=== PATIENT | female | born 1935 | race Caucasian/White ===

== ENCOUNTER 2017-01-02 12:29 | Emergency (ER) | payer MEDICARE, OTHER ==
--- NOTE | 2017-01-02 15:04 | XRAY Preliminary Report ---
Exam: XR Chest 2 View PA/LAT IMPRESSION: 1. There is some mild, nonspecific reticular opacity within the left lung base. This could represent atelectasis. 2. No evidence of lobar consolidation or pneumothorax. 3. No clearly acute bony abnormalities are seen. 4. Mild cardiomegaly. 5. There is a moderate size hiatal hernia. [facility] SITE ID: [id number]
--- NOTE | 2017-01-02 15:06 | XRAY Preliminary Report ---
Exam: XR Knee 3 View LT IMPRESSION: 1. No direct evidence of acute fracture or dislocation. 2. There is a suprapatellar joint effusion. 3. 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 [facility] SITE ID: [id number]
--- NOTE | 2017-01-02 15:07 | XRAY Report ---
EXAM: CHEST RADIOGRAPHY EXAM DATE: 01/02/2017 02:38 PM. CLINICAL HISTORY: Fall/left posterior tenderness. COMPARISON: None. TECHNIQUE: 2 views. FINDINGS: Lungs/Pleura: No evidence of acute consolidation or large effusion. There is mild, nonspecific reticu lar opacity within left lung base. No pneumothorax. Mediastinum: Mild cardiomegaly. There is thoracic aortic calcification. Other: There is a moderate-sized hiatal hernia. No clearly acute bony abnormalities are seen. IMPRESSION: 1. There is some mild, nonspecific reticular opacity within the left lung base. This could represent atelectasis. 2. No evidence of lobar consolidation or pneumothorax. 3. No clearly acute bony abnormalities are seen. 4. Mild cardiomegaly. 5. There is a moderate size hiatal hernia. [facility] Referring Provider Line: [phone] SITE ID: [id number]
--- NOTE | 2017-01-02 15:08 | XRAY Report ---
EXAM: LEFT KNEE RADIOGRAPHY EXAM DATE: 01/02/2017 02:38 PM. CLINICAL HISTORY: Patellar contusion. COMPARISON: None. TECHNIQUE: 3 views. FINDINGS: Bones: No evidence of fracture. Sclerosis projecting over the distal femur diaphysis may represent en chondroma or bone infarct. Joints: No evidence of dislocation. There is chondrocalcinosis. There is mild marginal osteophyte fo rmation. Soft Tissues: There is a suprapatellar joint effusion. There is mild prepatellar soft tissue swelling . IMPRESSION: 1. No direct evidence of acute fracture or dislocation. 2. There is a suprapatellar joint effusion. 3. 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 [facility] Referring Provider Line: [phone] SITE ID: [id number]
--- NOTE | 2017-01-02 16:40 | ED Physician Documentation ---
History of Present Illness - Stated complaint Stated Complaint: FALL BACK,RIB,LT KNEE PX - Chief complaint Chief Complaint: Back Pain - History obtained from History obtained from: Patient - Additonal information Additional information: Pleasant 81-year-old female who had a ground-level fall earlier today. She fell on the ground injuring her left knee and her left posterior thorax. She denies any presyncope or syncope. She feels perfectly fine other than pain to these areas. There is no preceding symptoms and she was well preceding the fall. She is ambulatory without difficulty and breathing comfortably. Review of systems: For pertinent positive and negatives in the review of systems please see the history of present illness, otherwise all other systems have been reviewed and are negative. Dragon disclaimer: Parts of this medical record were created using voice recognition technology. Because of the inherent limitations of this system, occasional same sounding word substitutions do occur and persist despite proofreading. Please read the document for context. 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 HEENT: Tonsil/Adenoidectomy - Present Medications Home Medications: Ambulatory Orders Medication Instructions Recorded Confirmed Levothyroxine [Synthroid] 01/02/17 Metoprolol Succinate [Toprol Xl] 01/02/17 Omeprazole 01/02/17 Simvastatin 01/02/17 - Allergies Allergies/Adverse Reactions: Allergies Allergy/AdvReac Type Severity Reaction Status Date / Time amoxicillin trihydrate * Allergy Rash Verified 01/02/17 12:38 [From Augmentin] aspirin [From Aggrenox] Allergy Headache Verified 01/02/17 12:38 dipyridamole [From Aggrenox] Allergy Headache Verified 01/02/17 12:38 hydrochlorothiazide Allergy Unknown Verified 01/02/17 12:38 potassium clavulanate * Allergy Rash Verified 01/02/17 12:38 [From Augmentin] Sulfa (Sulfonamide Allergy Unknown Verified 01/02/17 12:38 Antibiotics) - Social History Does the pt smoke?: No Smoking Status: Never smoker Does the pt drink ETOH?: Yes Does the pt have substance abuse?: No - Immunizations Immunizations are current?: Yes PD ED PE NORMAL - Vitals Vital signs reviewed: Yes - General General: Alert and oriented X 3, No acute distress, Well developed/nourished - HEENT HEENT: Atraumatic, PERRL, Pharynx benign, Dentition benign - Neck Neck: Supple, no meningeal sign - Cardiac Cardiac: RRR, No murmur - Respiratory Respiratory: No respiratory distress, Clear bilaterally, Other - Abdomen Abdomen: Normal bowel sounds, Non tender, Non distended - Back Back: No CVA TTP, No spinal TTP - Derm Derm: Normal color, No rash - Extremities Extremities: No deformity, No tenderness to palpate (Small contusion and discoloration is noted over the patella. Is very mild. There is no ligamentous laxity on evaluation of the left knee joint. The right and left posterior chest is atraumatic and nontender without crepitance), Normal ROM s pain, No edema Results - Vitals Vitals: Vital Signs - 24 hr 01/02/17 01/02/17 12:34 16:36 Temperature 36 C L Heart Rate 66 73 Respiratory 20 16 Rate Blood Pressure 146/68 H 147/68 H O2 Saturation 99 100 Oxygen O2 Source Room air PD MEDICAL DECISION MAKING - ED course ED course: Patient looks well on physical examination with only minor evidence of traumatic injury. She has mild tenderness to left posterior thorax and left knee. Radiographically both areas are unremarkable. She is ambulatory without difficulty. She has Motrin and Tylenol to take at home. Disposition to home Clinical impression: 1. Left patellar contusion 2. Left posterior thorax rib contusion Departure - Departure Disposition: 01 Home, Self Care Clinical Impression: Chest wall contusion Qualifiers: Encounter type: initial encounter Laterality: left Qualified Code(s): S20.212A - Contusion of left front wall of thorax, initial encounter Condition: Good Instructions: ED Contusion Soft Tissue Discharge Date/Time: 01/02/17 16:36
[2017-01-02 16:42] VITALS: BP 147/68
== END 2017-01-02 16:36 | disposition home or self-care (01) ==
LOC: ED 12:29
DX: S20.212A Contusion of left front wall of thorax, initial encounter (principal); I10 Essential (primary) hypertension; Z91.81 History of falling; Z96.659 Presence of unspecified artificial knee joint
CPT/HCPCS: 71020; 99283